=== PATIENT | male | born 1970 | race Caucasian/White ===

== ENCOUNTER 2018-08-07 08:31 | Emergency (ER) | payer MEDICAID, OTHER ==
[~2018-08-07] VITALS: Ht 177.8 cm; Wt 92.5 kg
[2018-08-07 08:39] VITALS: BP 143/82
--- NOTE | 2018-08-07 08:44 | NUR ---
PT AMBULATED TO BED 7
--- NOTE | 2018-08-07 08:44 | NUR ---
PT AMBULATED TO RESTROOM AT THIS TIME TO GIVE URINE SAMPLE
--- NOTE | 2018-08-07 08:51 | NUR ---
PT BIB SELF FOR ABD PAIN X1 MONTH. PT REPORTS INTERMITENT PRESSURE PAIN IN EPIGASTRIC REGION THAT OCASIONAL RADIATRES RUQ AND INCREASES AFTER EATING. PT DENIES N/V/D OR FEVER. PT REPORTS LAST BM THIS MORNING, BUT STATES THAT BM HAVE BEEN HARD AND DRY X1 WEEK. MEDHX:HYPERLIPIDEMIA
[2018-08-07] MEDS ORDERED: KETOROLAC 30 MG/ML VIAL IVP ONE (09:20)
[2018-08-07] MEDS ORDERED: FAMOTIDINE 20 MG TAB PO ONE (09:20)
[2018-08-07] MEDS ORDERED: NACL 0.9% 1,000 ML IV ONE (09:20)
[2018-08-07] MEDS ORDERED: LACTULOSE 20 GM/30 ML UDC PO ONE (09:20)
[2018-08-07] MEDS ORDERED: DICYCLOMINE HCL LIQUID 10 MG/5 ML UDC PO ONE (09:20)
[2018-08-07] MEDS ORDERED: NACL 0.9% 1,000 ML IV SCH (09:20)
--- NOTE | 2018-08-07 09:34 | NUR ---
PT TAKEN TO CT AT THIS TIME
[2018-08-07 09:36] LABS: BASOPHILS % (AUTO) 0.8 % (0.0-2.0); EOSINOPHILS # (AUTO) 0.1 K/uL (0-0.4); EOSINOPHILS % (AUTO) 2.4 % (0.0-4.0); HEMATOCRIT 43.4 % (36-52); HEMOGLOBIN 14.6 g/dL (12.0-18.0); LYMPHOCYTES # (AUTO) 1.1 K/uL (2.0-11.5); LYMPHOCYTES % (AUTO) 32.6 % (20.5-51.1); MEAN CORPUSCULAR HEMOGLOBIN 28 pg (27-31); MEAN CORPUSCULAR HGB CONC 34 g/dL (33-37); MEAN CORPUSCULAR VOLUME 82.7 fL (80-94); MONOCYTES # (AUTO) 0.3 K/uL (0.8-1.0); MONOCYTES % (AUTO) 8.6 % (1.7-9.3); NEUTROPHILS # (AUTO) 1.9 K/uL (1.8-7.7); NEUTROPHILS % (AUTO) 55.6 % (42.2-75.2); PLATELET COUNT (AUTO) 257 K/uL (140-450); RED BLOOD CELL COUNT(AUTO) 5.25 MIL/uL (4.20-6.10); RED CELL DISTRIBUTION WIDTH 14.2 % (11.6-13.7); WHITE BLOOD COUNT (AUTO) 3.5 K/uL (4.8-10.8)
[2018-08-07 09:39] LABS: APPEARANCE,URINE CLEAR (CLEAR); BILIRUBIN,URINE NEGATIVE (NEGATIVE); BLOOD, URINE 1+ (NEGATIVE); COLOR,URINE YELLOW (YELLOW); LEUKOCYTE ESTERASE ,URINE NEGATIVE (NEGATIVE); NITRITE, URINE NEGATIVE (NEGATIVE); UGLUCOSE NEGATIVE (NEGATIVE)
--- NOTE | 2018-08-07 09:42 | NUR ---
PT RETURNED FROM CT
[2018-08-07 09:52] LABS: ANION GAP 11.3 (8-16); CARBON DIOXIDE 29.9 mmol/L (21-32); CREATININE 1.2 mg/dL (0.7-1.3); POTASSIUM 4.2 mmol/L (3.5-5.1)
[2018-08-07 09:53] LABS: WBC,URINE 0-5 /HPF (0-5)
[2018-08-07 09:54] LABS: ALBUMIN 3.7 g/dL (3.4-5.0); TOTAL BILIRUBIN 0.6 mg/dL (0.0-1.0)
--- NOTE | 2018-08-07 10:07 | NUR ---
PT IN BED, REPORTS NO PAIN AT THIS TIME. ABD IS SOFT, NON-TENDER, BOWEL SOUNDS ACTIVE X4 QUADRANTS. VSS
[2018-08-07 11:42] VITALS: BP 129/83
--- NOTE | 2018-08-07 11:42 | NUR ---
Patient discharged with v/s stable. Written and verbal after care instructions given and explained. Patient alert, oriented and verbalized understanding of instructions. Ambulatory with steady gait. All questions addressed prior to discharge. ID band removed. Patient advised to follow up with PMD. Rx of PROTONIX AND PEPCID given. Patient educated on indication of medication including possible reaction and side effects. Opportunity to ask questions provided and answered.
== END 2018-08-07 11:42 | disposition home or self-care (01) ==
LOC: MED 08:31
DX: K29.70 Gastritis, unspecified, without bleeding (principal); K42.9 Umbilical hernia without obstruction or gangrene
CPT/HCPCS: 36415; 74176; 80053; 81001; 82150; 83690; 85025; 96361; 96374; 99284; J1885; J7030